=== PATIENT | male | born 1950 | race Caucasian/White ===

== ENCOUNTER 2018-05-06 11:37 | Emergency (ER) | payer OTHER, SELFPAY ==
[2018-05-06 11:49] VITALS: BP 134/62; PULSE 78; RESP 18; TEMP 36.7; O2SAT 91; BMI 24.4
--- NOTE | 2018-05-06 13:38 | ED.UPPEXIN ---
HPI - Extremity Injury (Upper) <CARLINE Vicente - Last Filed: 05/06/18 19:00> General Chief Complaint: Extremity Injury, Upper Stated Complaint: JUMPED OFF WORK TRUCK, RIPPED SKIN ON RING FINGER Time Seen by Provider: 05/06/18 13:32 Source: patient Mode of arrival: ambulatory Limitations: no limitations History of Present Illness HPI narrative: Patient is a 68-year-old male who presents with chief complaint of concern of infection in his left ring finger. He states door while jumping off of a truck About 10 days ago. He states he pulled his skin up, elated back over and then it was doing okay. He does complain of swelling, does complain of slight decreased range of motion which he attributes to the swelling. He does not know when his last tetanus was. He denies any fevers, nausea, vomiting, diarrhea. He denies any abdominal pain chest pain or shortness of breath. Related Data Previous Rx's Medication Instructions Recorded clindamycin HCl 300 mg PO QID #40 cap 05/06/18 Allergies Allergy/AdvReac Type Severity Reaction Status Date / Time Penicillins Allergy Verified 05/06/18 11:49 Review of Systems <BRIAN Vicente - Last Filed: 05/06/18 19:00> Review of Systems GENERAL: Denies chills, fatigue, malaise, fever, sweats. HEENT: Denies sinus pain, ear pain, sore throat, difficulty swallowing, dizziness. RESPIRATORY: Denies dyspnea, cough, wheezing, hemoptysis, sputum. CARDIOVASCULAR: Denies chest pain, palpitations, orthopnea, edema, GASTROINTESTINAL: Denies nausea, vomiting, abdominal pain, diarrhea, constipation, melena. : Denies dysuria, frequency, incontinence, hematuria, urinary retention. MUSCULOSKELETAL: see HPI SKIN: See HPI NEUROLOGIC: Denies weakness, headache, numbness, change in speech, confusion, seizures, incoordination. PSYCHIATRIC: No concerning psychosocial issues. 12 point review of systems is negative except for those stated above Exam <BRIAN Vicente - Last Filed: 05/06/18 19:00> Narrative Exam Narrative: GENERAL: This is a well-nourished, well-developed patient, in No acute distress HEAD: Atraumatic. Normocephalic. No temporal or scalp tenderness. EYES: Pupils equal round and reactive. Extraocular motions intact. No scleral icterus. No injection or drainage. ENT: Nose without bleeding, purulent drainage or septal hematoma. Throat without erythema, tonsillar hypertrophy or exudate. Uvula midline. Airway patent. NECK: Trachea midline. No JVD or lymphadenopathy. Supple, nontender, no meningeal signs. CARDIOVASCULAR: Regular rate and rhythm RESPIRATORY: no cough or increased work of breathing. GASTROINTESTINAL: Abdomen soft, non-tender, nondistended. No hepato-splenomegaly, or palpable masses. No guarding. EXTREMITIES: Swelling noted middle phalanx of left ring finger. Patient can only flex finger proximally 90?. Swelling is soft. Capillary refill intact less than 2 sec affected finger. Positive radial pulses. NEURO: AOx3. SKIN: Scabbed over wound noted middle of left ring finger. No obvious exudate. Erythema noted and swelling noted. Initial Vital Signs Initial Vital Signs: Vital Signs Temperature 98.0 F 05/06/18 11:49 Pulse Rate 78 05/06/18 11:49 Respiratory Rate 18 05/06/18 11:49 Blood Pressure 134/62 05/06/18 11:49 Pulse Oximetry 91 05/06/18 11:49 <Adriana Tapia DO - Last Filed: 05/06/18 19:42> Initial Vital Signs Initial Vital Signs: Vital Signs Temperature 98.0 F 05/06/18 11:49 Pulse Rate 78 05/06/18 11:49 Respiratory Rate 18 05/06/18 11:49 Blood Pressure 134/62 05/06/18 11:49 Pulse Oximetry 91 05/06/18 11:49 Course <CARLINE Vicente - Last Filed: 05/06/18 19:00> Orders Ordered: ED Orders 05/06/18 13:39 XR finger LT min 2V Stat Discontinued Medications Diphtheria/Tetanus/Acell Pertussis (Adacel) 0.5 ml IM .ONCE ONE Stop: 05/06/18 13:39 Last Admin: 05/06/18 13:58 Dose: 0.5 ml Vital Signs - 8 hr 05/06/18 11:49 05/06/18 15:36 Temperature 98.0 F 97.7 F Pulse Rate 78 64 Respiratory Rate 18 15 Blood Pressure 134/62 Blood Pressure [Left Arm] 128/59 L Pulse Oximetry 91 92 <Adriana Tapia DO - Last Filed: 05/06/18 19:42> Orders Ordered: ED Orders 05/06/18 13:39 XR finger LT min 2V Stat Discontinued Medications Diphtheria/Tetanus/Acell Pertussis (Adacel) 0.5 ml IM .ONCE ONE Stop: 05/06/18 13:39 Last Admin: 05/06/18 13:58 Dose: 0.5 ml Vital Signs - 8 hr 05/06/18 11:49 05/06/18 15:36 Temperature 98.0 F 97.7 F Pulse Rate 78 64 Respiratory Rate 18 15 Blood Pressure 134/62 Blood Pressure [Left Arm] 128/59 L Pulse Oximetry 91 92 MDM - Extremity Injury (Upper) <CARLINE Vicente - Last Filed: 05/06/18 19:00> Imaging Data finger xray : Radiologist's impression: [address] [address] XRay Report Signed Patient: Darren Terrell EMR#: [id number] : 9Acct:[id number] Age/Sex: 68 / MDate of Service: 05/06/18 Loc: ED Accession Number: [id number] Procedure: XR finger LT min 2V Ordering Provider: Adriana Blanco PROCEDURE: XR FINGER LT MIN 2V INDICATIONS: trauma 1.5 weeks ago left 4th finger TECHNIQUE: AP hand, 2 views of the left finger(s) acquired. COMPARISON: None. FINDINGS: Bones: No fractures or dislocations. No suspicious bony lesions. A lucency projects in the distal radius presumably subchondral cystic change given advanced radiocarpal joint space narrowing. Soft tissue swelling involving the ring finger at the PIP joint. IMPRESSION: Soft tissue swelling of the ring finger. No fracture identified. Degenerative changes as above. Dictated by: Mauricio Portillo M.D. on 05/06/2018 at 15:07 Approved by: Mauricio Portillo M.D. on 05/06/2018 at 15:09 [facility] Narrative Medical decision making narrative: Patient presents for chief complaint possible infection on his left ring finger after sustaining a wound approximately 10 days ago. His tetanus was updated and he is not sure when his last dose was. An x-ray was taken to evaluate for possible fracture or other injury given the trauma. He does have reduced range of motion, but capillary refills intact in his fingers soft to palpation. I will start him on clindamycin due to his penicillin allergy for a wound infection. Discussed at length return precautions of high fever, extending erythema and swelling. Patient is nontoxic and hemodynamically stable at this point time. Discussed at length return precautions And he had or concerns upon discharge. L & I paperwork filled out. Discharge Plan Departure Patient Disposition: Home Clinical Impression: Wound infection Discharge Date/Time: 05/06/18 15:37 Interventions: ED Discharge Assessment Last Done: 05/06/18 15:37 Instructions: DI for Wound Infection Activity Restrictions/Additional Instructions: I am placing you on an antibiotic for the infection in your wound. we also updated your tetanus today. Please soak your hand in warm Epsom salt soaks several times a day. Please monitor for fever, worsening of the swelling or redness. Please be evaluated by your primary care provider if these occur. Prescriptions: New clindamycin HCl 300 mg capsule 300 mg PO QID Qty: 40 RF: 0 <Adriana Tapia DO - Last Filed: 05/06/18 19:42> Cosign ED Attending Cosignature Attestation: I was immediately available in the department for consultation. This documentation has been reviewed and I agree with assessment and plan. Supervised by Adriana Tapia DO
--- NOTE | 2018-05-06 13:47 | ED_ITS ---
HPI - Extremity Injury (Upper) <CARLINE Vicente - Last Filed: 05/06/18 19:00> General Chief Complaint: Extremity Injury, Upper Stated Complaint: JUMPED OFF WORK TRUCK, RIPPED SKIN ON RING FINGER Time Seen by Provider: 05/06/18 13:32 Source: patient Mode of arrival: ambulatory Limitations: no limitations History of Present Illness HPI narrative: Patient is a 68-year-old male who presents with chief complaint of concern of infection in his left ring finger. He states door while jumping off of a truck About 10 days ago. He states he pulled his skin up, elated back over and then it was doing okay. He does complain of swelling, does complain of slight decreased range of motion which he attributes to the swelling. He does not know when his last tetanus was. He denies any fevers, nausea, vomiting, diarrhea. He denies any abdominal pain chest pain or shortness of breath. Related Data Previous Rx's Medication Instructions Recorded clindamycin HCl 300 mg PO QID #40 cap 05/06/18 Allergies Allergy/AdvReac Type Severity Reaction Status Date / Time Penicillins Allergy Verified 05/06/18 11:49 Review of Systems <BRIAN Vicente - Last Filed: 05/06/18 19:00> Review of Systems GENERAL: Denies chills, fatigue, malaise, fever, sweats. HEENT: Denies sinus pain, ear pain, sore throat, difficulty swallowing, dizziness. RESPIRATORY: Denies dyspnea, cough, wheezing, hemoptysis, sputum. CARDIOVASCULAR: Denies chest pain, palpitations, orthopnea, edema, GASTROINTESTINAL: Denies nausea, vomiting, abdominal pain, diarrhea, constipation, melena. : Denies dysuria, frequency, incontinence, hematuria, urinary retention. MUSCULOSKELETAL: see HPI SKIN: See HPI NEUROLOGIC: Denies weakness, headache, numbness, change in speech, confusion, seizures, incoordination. PSYCHIATRIC: No concerning psychosocial issues. 12 point review of systems is negative except for those stated above Exam <BRIAN Vicente - Last Filed: 05/06/18 19:00> Narrative Exam Narrative: GENERAL: This is a well-nourished, well-developed patient, in No acute distress HEAD: Atraumatic. Normocephalic. No temporal or scalp tenderness. EYES: Pupils equal round and reactive. Extraocular motions intact. No scleral icterus. No injection or drainage. ENT: Nose without bleeding, purulent drainage or septal hematoma. Throat without erythema, tonsillar hypertrophy or exudate. Uvula midline. Airway patent. NECK: Trachea midline. No JVD or lymphadenopathy. Supple, nontender, no meningeal signs. CARDIOVASCULAR: Regular rate and rhythm RESPIRATORY: no cough or increased work of breathing. GASTROINTESTINAL: Abdomen soft, non-tender, nondistended. No hepato-splenomegaly , or palpable masses. No guarding. EXTREMITIES: Swelling noted middle phalanx of left ring finger. Patient can only flex finger proximally 90?. Swelling is soft. Capillary refill intact less than 2 sec affected finger. Positive radial pulses. NEURO: AOx3. SKIN: Scabbed over wound noted middle of left ring finger. No obvious exudate. Erythema noted and swelling noted. Initial Vital Signs Initial Vital Signs: Vital Signs Temperature 98.0 F 05/06/18 11:49 Pulse Rate 78 05/06/18 11:49 Respiratory Rate 18 05/06/18 11:49 Blood Pressure 134/62 05/06/18 11:49 Pulse Oximetry 91 05/06/18 11:49 <Adriana Tapia DO - Last Filed: 05/06/18 19:42> Initial Vital Signs Initial Vital Signs: Vital Signs Temperature 98.0 F 05/06/18 11:49 Pulse Rate 78 05/06/18 11:49 Respiratory Rate 18 05/06/18 11:49 Blood Pressure 134/62 05/06/18 11:49 Pulse Oximetry 91 05/06/18 11:49 Course <CARLINE Vicente - Last Filed: 05/06/18 19:00> Orders Ordered: ED Orders 05/06/18 13:39 XR finger LT min 2V Stat Discontinued Medications Diphtheria/Tetanus/Acell Pertussis (Adacel) 0.5 ml IM .ONCE ONE Stop: 05/06/18 13:39 Last Admin: 05/06/18 13:58 Dose: 0.5 ml Vital Signs - 8 hr 05/06/18 11:49 05/06/18 15:36 Temperature 98.0 F 97.7 F Pulse Rate 78 64 Respiratory Rate 18 15 Blood Pressure 134/62 Blood Pressure [Left Arm] 128/59 L Pulse Oximetry 91 92 <Adriana Tapia DO - Last Filed: 05/06/18 19:42> Orders Ordered: ED Orders 05/06/18 13:39 XR finger LT min 2V Stat Discontinued Medications Diphtheria/Tetanus/Acell Pertussis (Adacel) 0.5 ml IM .ONCE ONE Stop: 05/06/18 13:39 Last Admin: 05/06/18 13:58 Dose: 0.5 ml Vital Signs - 8 hr 05/06/18 11:49 05/06/18 15:36 Temperature 98.0 F 97.7 F Pulse Rate 78 64 Respiratory Rate 18 15 Blood Pressure 134/62 Blood Pressure [Left Arm] 128/59 L Pulse Oximetry 91 92 MDM - Extremity Injury (Upper) <CARLINE Vicente - Last Filed: 05/06/18 19:00> Imaging Data finger xray : Radiologist's impression: [address] [address] XRay Report Signed Patient: Darren Terrell EMR#: [id number] : 9Acct:[id number] Age/Sex: 68 / MDate of Service: 05/06/18 Loc: ED Accession Number: [id number] Procedure: XR finger LT min 2V Ordering Provider: Adriana Blanco PROCEDURE: XR FINGER LT MIN 2V INDICATIONS: trauma 1.5 weeks ago left 4th finger TECHNIQUE: AP hand, 2 views of the left finger(s) acquired. COMPARISON: None. FINDINGS: Bones: No fractures or dislocations. No suspicious bony lesions. A lucency projects in the distal radius presumably subchondral cystic change given advanced radiocarpal joint space narrowing. Soft tissue swelling involving the ring finger at the PIP joint. IMPRESSION: Soft tissue swelling of the ring finger. No fracture identified. Degenerative changes as above. Dictated by: Mauricio Portillo M.D. on 05/06/2018 at 15:07 Approved by: Mauricio Portillo M.D. on 05/06/2018 at 15:09 [facility] Narrative Medical decision making narrative: Patient presents for chief complaint possible infection on his left ring finger after sustaining a wound approximately 10 days ago. His tetanus was updated and he is not sure when his last dose was. An x-ray was taken to evaluate for possible fracture or other injury given the trauma. He does have reduced range of motion, but capillary refills intact in his fingers soft to palpation. I will start him on clindamycin due to his penicillin allergy for a wound infection. Discussed at length return precautions of high fever, extending erythema and swelling. Patient is nontoxic and hemodynamically stable at this point time. Discussed at length return precautions And he had or concerns upon discharge. L & I paperwork filled out. Discharge Plan Departure Patient Disposition: Home Clinical Impression: Wound infection Discharge Date/Time: 05/06/18 15:37 Interventions: ED Discharge Assessment Last Done: 05/06/18 15:37 Instructions: DI for Wound Infection Activity Restrictions/Additional Instructions: I am placing you on an antibiotic for the infection in your wound. we also updated your tetanus today. Please soak your hand in warm Epsom salt soaks several times a day. Please monitor for fever, worsening of the swelling or redness. Please be evaluated by your primary care provider if these occur. Prescriptions: New clindamycin HCl 300 mg capsule 300 mg PO QID Qty: 40 RF: 0 <Adriana Tapia DO - Last Filed: 05/06/18 19:42> Cosign ED Attending Cosignature Attestation: I was immediately available in the department for consultation. This documentation has been reviewed and I agree with assessment and plan. Supervised by Adriana Tapia DO
[2018-05-06] MEDS: TET,DIPH,PERTUSS(ACELL),VAC/PF 0.5 ML SYRINGE IM (13:58)
[2018-05-06 15:36] VITALS: BP 128/59; PULSE 64; RESP 15; TEMP 36.5; O2SAT 92
== END 2018-05-06 15:37 | disposition home or self-care (01) ==
PROVIDERS: Emergency Provider Nurse Practitioner Family
DX: S60.945A Unspecified superficial injury of left ring finger, initial encounter (principal); L08.9 Local infection of the skin and subcutaneous tissue, unspecified; W17.89XA Other fall from one level to another, initial encounter; Y99.0 Civilian activity done for income or pay
CPT/HCPCS: 73140; 90471; 99282; 99283; 90715

== ENCOUNTER → 2020-01-13 09:51 | Outpatient (CLI) | payer MEDICARE, SELFPAY ==
--- NOTE | 2020-01-13 09:53 | DI.RAD.S_ITS ---
PROCEDURE: XR FOOT RT MIN 3V INDICATIONS: crush injury 4th toe, r/o fracture TECHNIQUE: 3 views of the foot were acquired. COMPARISON: None. FINDINGS: Bones: There is a mildly displaced fracture involving the distal phalanx of the 4th toe. No armida intra-articular involvement can be seen. No additional fractures are detected. No suspicious bony lesions. Incidental note is made of a bipartite medial sesamoid bone. Age-appropriate bony degenerative changes are seen. Soft tissues: No significant soft tissue abnormality is seen. IMPRESSION: Mildly displaced fracture of the distal phalanx of the 4th toe. Dictated by: Ascencion White M.D. on 01/13/2020 at 9:24 Approved by: Ascencion White M.D. on 01/13/2020 at 9:25
== END ==
PROVIDERS: Referring Provider Physician Assistant; Visit Provider Physician Assistant
DX: S92.531A Displaced fracture of distal phalanx of right lesser toe(s), initial encounter for closed fracture (principal); X58.XXXA Exposure to other specified factors, initial encounter
CPT/HCPCS: 73630

== ENCOUNTER 2020-10-12 09:10 | Emergency (ER) | payer OTHER, SELFPAY ==
[2020-10-12 09:10] VITALS: BP 167/79; PULSE 60; RESP 18; TEMP 36.3; O2SAT 94; BMI 25.1
--- NOTE | 2020-10-12 09:14 | DI.RAD.S_ITS ---
PROCEDURE: XR RIBS RT MIN 3V W CXR 1V INDICATIONS: r anterior rib pain after fall. TECHNIQUE: 2 views of the right ribs were acquired, along with a single view chest. COMPARISON: None. FINDINGS: Surgical changes and devices: None. Bones and chest wall: Question very subtle right lateral 5th and 6th rib fractures. No suspicious bony lesions. Overlying soft tissues appear unremarkable. Lungs and pleura: No pleural effusions or pneumothorax. Lungs appear clear. Mediastinum: Mediastinal contours appear normal. Heart size is normal. IMPRESSION: Question very subtle right lateral 5th and 6th rib fractures. No evidence acute pulmonary process. Dictated by: Jay Beckett M.D. on 10/12/2020 at 9:34 Approved by: Jay Beckett M.D. on 10/12/2020 at 9:37
--- NOTE | 2020-10-12 09:22 | ED.FALL ---
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 He had immediate pain and splinting but no dramatic dyspnea. He did not hurt any other part of his body and did not hit his head. He was able to drive himself to the emergency department. He denies recent fever, cough, chills, chest pain or palpitations, abdominal pain, nausea or vomiting, headaches, numbness or tingling. Related Data Home Medications Medication Instructions Recorded Confirmed dapsone 100 mg tablet 125 mg PO DAILY tab 01/13/20 01/13/20 Previous Rx's Medication Instructions Recorded sulfamethoxazole 800 1 tab PO BID #14 tab 01/13/20 mg-trimethoprim 160 mg tablet oxycodone-acetaminophen 1 tab PO Q6H PRN #20 tab 10/12/20 Allergies Allergy/AdvReac Type Severity Reaction Status Date / Time Penicillins Allergy Verified 01/13/20 09:19 Review of Systems Review of Systems Narrative: Remainder of review of systems including constitutional, ENT, cardiovascular, respiratory, GI, , musculoskeletal, skin, neurologic and psychiatric systems reviewed and are unremarkable except as noted in HPI. Patient History Medical History Fracture of fourth toe, right, open Gluten intolerance Social History Smoking Status: Current every day smoker Exam Narrative Exam Narrative: General: Healthy appearing, in pain but able to give a complete and coherent history. Well-nourished well-developed HEENT: Moist mucous membranes, normal sclera with reactive pupils, Neck: supple, no midline tenderness Respiratory: Lungs are clear to auscultation, no wheezing no rales no rhonchi. Splinting will with diminished breath sounds in the right base Chest: No subcutaneous air, no obvious contusions or abrasion. Tender to palpation right lower axillary line Cardiac: Regular rate and rhythm no murmurs no bruits Abdomen: Soft, nontender, good bowel tones, no flank pain Skin: Warm and dry, minor scattered areas of excoriation secondary to his gluten intolerance Neurologic: Grossly neurologically intact with no obvious asymmetries or abnormalities Extremities: No trauma, well perfused Psych: Cooperative, appropriate insight and affect Initial Vital Signs Initial Vital Signs: Vital Signs Temperature 97.4 F L 10/12/20 09:10 Pulse Rate 60 10/12/20 09:10 Respiratory Rate 18 10/12/20 09:10 Blood Pressure 167/79 H 10/12/20 09:10 Pulse Oximetry 94 10/12/20 09:10 Course Orders Ordered: ED Orders 10/12/20 09:14 XR ribs RT min 3V w CXR1V Stat Discontinued Medications Acetaminophen (Acetaminophen 325 Mg Tablet) 325 mg PO NOW ONE Stop: 10/12/20 09:32 Last Admin: 10/12/20 09:42 Dose: 325 mg Documented by: CHRISTI Ibuprofen (Ibuprofen 400 Mg Tablet) 400 mg PO NOW ONE Stop: 10/12/20 09:32 Last Admin: 10/12/20 09:42 Dose: 400 mg Documented by: CHRISTI Vital Signs Vital signs: Vital Signs - 8 hr 10/12/20 09:10 Temperature 97.4 F L Pulse Rate 60 Respiratory Rate 18 Blood Pressure 167/79 H Pulse Oximetry 94 MDM - Fall Medical Records Attestation: I reviewed the patient's medical records. Imaging Data Chest x-ray: Radiologist's Impression: FINDINGS: Surgical changes and devices: None. Bones and chest wall: Question very subtle right lateral 5th and 6th rib fractures. No suspicious bony lesions. Overlying soft tissues appear unremarkable. Lungs and pleura: No pleural effusions or pneumothorax. Lungs appear clear. Mediastinum: Mediastinal contours appear normal. Heart size is normal. IMPRESSION: Question very subtle right lateral 5th and 6th rib fractures. No evidence acute pulmonary process. Dictated by: Jay Beckett M.D. on 10/12/2020 at 9:34 [facility] Narrative Medical decision making narrative: 70-year-old gentleman fell landing with his right ribs over a metal bar and sustaining fractures of the 5th and 6th ribs without hemo or pneumothorax. No other injuries appreciated. With the severity of his pain in the manual portion of his job I have suggested not returning to work for at least 4 more days. Will use ibuprofen and Tylenol for medium pain and will add Percocet in for moderate pain along with instructions to focus on deep breathing. L and I paperwork is filled out. He is safe for home discharge Discharge Plan Departure Patient Disposition: Home Clinical Impression: Rib fractures Qualifiers: Encounter type: initial encounter Fracture type: closed Laterality: right Qualified Code(s): S22.41XA - Multiple fractures of ribs, right side, initial encounter for closed fracture Instructions: DI for Rib Fracture Activity Restrictions/Additional Instructions: Thank you for coming in today I am sorry that you fell and you did break to ribs. Fortunately, the bone is not sticking out did not injure your lung and there was no bleeding into or around your lung. You are going to hurt and it is going to hurt more over the next 24-48 hours. Using 400 mg of ibuprofen (2 [id number] pills) and 1 Tylenol every 6 hours can be very helpful in controlling pain. For severe pain, use to ibuprofen and 1 Percocet. Percocet has Tylenol and narcotic in it. Any day that you use narcotic please also take a stool softener, you will need to pick this up at the drug store as well as the medication. Narcotics will cause severe constipation. If you notice new or worsening symptoms, please feel free to return to the emergency department. I have recommended that you have the next 4 days off of work for the best recovery. Prescriptions: New oxycodone-acetaminophen 5-325 mg tablet 1 tab PO Q6H PRN (Reason: pain) Qty: 20 RF: 0 No Action dapsone 100 mg tablet 125 mg PO DAILY RF: 0 sulfamethoxazole-trimethoprim [Bactrim DS] 800-160 mg tablet 1 tab PO BID Qty: 14 RF: 0
[2020-10-12] MEDS: ACETAMINOPHEN 325 MG TABLET PO (09:42)
[2020-10-12] MEDS: IBUPROFEN 400 MG TABLET PO (09:42)
[2020-10-12 10:28] VITALS: BP 136/61; PULSE 54; O2SAT 95
== END 2020-10-12 10:41 | disposition home or self-care (01) ==
PROVIDERS: Emergency Provider Emergency Medicine
DX: S22.41XA Multiple fractures of ribs, right side, initial encounter for closed fracture (principal); W01.198A Fall on same level from slipping, tripping and stumbling with subsequent striking against other object, initial encounter; Y99.0 Civilian activity done for income or pay
CPT/HCPCS: 71101; 99283